=== PATIENT | female | born 1995 ===

== ENCOUNTER → 2020-10-08 | Outpatient (CLI) | payer OTHER | END | disposition home or self-care (01) | LOC: COVID19 15:26 | PROVIDERS: ATTEND Nurse Practitioner Family | DX: U07.1 COVID-19 (principal) ==

== ENCOUNTER → 2021-04-10 | Outpatient (CLI) | payer OTHER | END | disposition home or self-care (01) | LOC: US 11:15 | PROVIDERS: ATTEND Nurse Practitioner Women's Health | DX: Z34.01 Encounter for supervision of normal first pregnancy, first trimester (principal); Z3A.08 8 weeks gestation of pregnancy ==

== ENCOUNTER → 2024-06-29 | Outpatient (CLI) | payer OTHER | END | disposition home or self-care (01) | LOC: LAB 15:31 | PROVIDERS: ATTEND Nurse Practitioner Family | DX: J01.80 Other acute sinusitis (principal) ==